=== PATIENT | male | born 1985 | race Caucasian/White ===

== ENCOUNTER 2017-02-10 15:16 | Emergency (ER) | payer OTHER ==
[~2017-02-10] VITALS: Ht 175.3 cm; Wt 58.8 kg
[2017-02-10 15:19] VITALS: TEMP 36.6; Ht 175.3 cm; Wt 58.8 kg
[2017-02-10] MEDS ORDERED: ACETAMINOPHEN 500 MG TAB PO STA (15:42)
[2017-02-10] MEDS ORDERED: FLUT0.15 NAE (15:46)
[2017-02-10] MEDS ORDERED: CETI10TA84 PO (15:46)
[2017-02-10] MEDS ORDERED: SULF800T23 PO (15:46)
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
[2017-02-10 16:31] VITALS: BP 114/60; PULSE 68; O2SAT 99
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
== END 2017-02-10 16:32 | disposition home or self-care (01) ==
LOC: C.EDB 15:17 → C.EDA 16:32
DX: S13.9XXA Sprain of joints and ligaments of unspecified parts of neck, initial encounter (principal); S80.12XA Contusion of left lower leg, initial encounter; V43.52XA Car driver injured in collision with other type car in traffic accident, initial encounter; Y92.410 Unspecified street and highway as the place of occurrence of the external cause

== ENCOUNTER → 2017-07-06 | Outpatient (CLI) | payer OTHER ==
[~2017-07-06] MED LIST: CETI10TA84 PO; FLUT0.15 NAE; SULF800T23 PO
== END | disposition home or self-care (01) ==
LOC: C.LAB 18:34
PROVIDERS: ATTEND Family Medicine
DX: Z00.00 Encounter for general adult medical examination without abnormal findings (principal)